=== PATIENT | female | born 1945 | race American Indian/Alaskan Native ===

== ENCOUNTER 2019-01-22 00:50 | Emergency (ER) | payer MEDICARE ==
[2019-01-22 01:00] VITALS: BP 170/67
[2019-01-22] MEDS ORDERED: ULTRAM PO ONE (02:11)
[2019-01-22] MEDS ORDERED: ULTRAM ONE (02:13)
--- NOTE | 2019-01-22 04:08 | XRay Report ---
FINAL REPORT EXAM: XR SPINE CERVICAL 2-3V HISTORY: fall neck pain COMPARISONS: None FINDINGS: Four views of the cervical spine Cervical lordosis is within normal limits. Diffuse mild intervertebral disc space narrowing is most s ignificant at C3-C4 and C5-C6 with associated end-plate spondylosis and remottling. Vertebral body he ights are otherwise preserved. No fractures. Prevertebral soft tissues are within normal limits. Inco mplete evaluation of the lung apices is unremarkable. IMPRESSION: No acute cervical spine findings. Consider CT for more sensitive evaluation as warranted.
--- NOTE | 2019-01-22 04:09 | XRay Report ---
FINAL REPORT EXAM: XR FOREARM LT HISTORY: fall left arm pain COMPARISONS: None. FINDINGS: AP and lateral views left forearm No bone lesion, periosteal reaction, or fracture. No deformity or gross malalignment. IMPRESSION: Intact left forearm.
--- NOTE | 2019-01-22 04:12 | XRay Report ---
FINAL REPORT EXAM: XR RIBS UNI W PA CHEST 3+V RT HISTORY: fall right flank pain TECHNIQUE: PA chest radiograph and AP and oblique views of the right rib cage PRIORS: None. FINDINGS: No mediastinal shift. Cardiac silhouette is not enlarged. No pneumothorax, effusion, or focal pulmon flavia opacity. No displaced rib fracture. IMPRESSION: No acute pulmonary finding or displaced rib fracture.
--- NOTE | 2019-01-22 04:39 | Emergency Department Report ---
ED Fall HPI - General Chief Complaint: Fall Stated Complaint: FALL AT WORK Time Seen by Provider: 01/22/19 03:19 Source: patient Mode of arrival: Wheelchair - History of Present Illness Initial Comments: Patient is a 73-year-old black female with hx of lupus, and htn who presents status post ground-level fall today at work there was no LOC patient was immediately ambulatory after incident states she did not require ambulance transport, the patient now complains of right posterior lateral neck pain right flank rib pain and left forearm pain, pain is described as aching 4/10 pain is exacerbated by movement pt remains ambualtory gait is steady there is no deformity no laceration abrasion or bleeding pain is relieved by rest and off loading MD Complaint: fall Onset/Timin -: hour(s) Fall From: standing When Fall Occurred: other (8 hrs) Fall Witnessed: yes, by bystander Place Fall Occurred: work Loss of Consciousness: none Prolonged Down Time?: no Symptoms Prior to Fall: none Location: neck (right posterior lateral neck ), back (right flank rib pain) Location - Extremities: Left: Forearm Severity: moderate Severity scale (0 -10): 4 Quality: aching Context: tripped/slipped Associated Symptoms: neck pain - Related Data Home Medications Medication Instructions Recorded Confirmed Last Taken Baclofen [Lioresal] 10 mg PO TID 03/08/18 03/08/18 Unknown Calcium Citrate/Vitamin D3 1 each PO QDAY 03/08/18 03/08/18 Unknown [Calcium Citrate - Vit D Tablet] Carboxymethylcellulose Sodium 1 - 2 drops OU PRN PRN 03/08/18 03/08/18 Unknown [Refresh Tears] Estradiol [Estrace] 1 gm VG QPM 03/08/18 03/08/18 Unknown Gabapentin [Neurontin] 300 mg PO TID 03/08/18 03/08/18 Unknown Hydroxychloroquine [Plaquenil] 200 mg PO QDAY 03/08/18 03/08/18 Unknown Lisinopril [Prinivil] 7.5 mg PO QDAY 03/08/18 03/08/18 Unknown raNITIdine HCl [Zantac 300 MG TAB] 300 mg PO HS 03/08/18 03/08/18 Unknown traMADol [Ultram 50 MG tab] 50 mg PO Q6HR PRN 03/08/18 03/08/18 Unknown Previous Rx's Medication Instructions Recorded Last Taken Type Menthol/Camphor [[place] 1 applicatio TP QID PRN #1 tube 01/22/19 Unknown Rx Ointment] Tramadol HCl [Ultram] 50 mg PO TID PRN #9 tablet 01/22/19 Unknown Rx Allergies Allergy/AdvReac Type Severity Reaction Status Date / Time acetaminophen [From Percocet] Allergy Itching Verified 01/22/19 01:01 oxycodone [From Percocet] Allergy Itching Verified 01/22/19 01:01 rye bread Allergy Vomiting Uncoded 01/22/19 01:02 ED Review of Systems ROS: Stated complaint: FALL AT WORK Other details as noted in HPI Constitutional: denies: chills, fever Eyes: denies: eye pain, eye discharge, vision change ENT: denies: ear pain, throat pain Respiratory: denies: cough, shortness of breath, wheezing Cardiovascular: denies: chest pain, palpitations Endocrine: no symptoms reported Gastrointestinal: denies: abdominal pain, nausea, vomiting, diarrhea Genitourinary: denies: urgency, dysuria, discharge Musculoskeletal: back pain, arthralgia. denies: joint swelling, myalgia Skin: denies: rash, lesions Neurological: denies: headache, weakness, paresthesias Psychiatric: denies: anxiety, depression Hematological/Lymphatic: denies: easy bleeding, easy bruising ED Past Medical Hx - Past Medical History Hx Hypertension: Yes Additional medical history: Lupus, Cataract, Fibromylgia - Surgical History Additional Surgical History: Shoulder and knee replacement, c sect - Social History Smoking Status: Never Smoker - Medications Home Medications: Home Medications Medication Instructions Recorded Confirmed Last Taken Type Baclofen [Lioresal] 10 mg PO TID 03/08/18 03/08/18 Unknown History Calcium Citrate/Vitamin D3 1 each PO QDAY 03/08/18 03/08/18 Unknown History [Calcium Citrate - Vit D Tablet] Carboxymethylcellulose Sodium 1 - 2 drops OU PRN PRN 03/08/18 03/08/18 Unknown History [Refresh Tears] Estradiol [Estrace] 1 gm VG QPM 03/08/18 03/08/18 Unknown History Gabapentin [Neurontin] 300 mg PO TID 03/08/18 03/08/18 Unknown History Hydroxychloroquine [Plaquenil] 200 mg PO QDAY 03/08/18 03/08/18 Unknown History Lisinopril [Prinivil] 7.5 mg PO QDAY 03/08/18 03/08/18 Unknown History raNITIdine HCl [Zantac 300 MG TAB] 300 mg PO HS 03/08/18 03/08/18 Unknown History traMADol [Ultram 50 MG tab] 50 mg PO Q6HR PRN 03/08/18 03/08/18 Unknown History Menthol/Camphor [[place] 1 applicatio TP QID PRN #1 tube 01/22/19 Unknown Rx Ointment] Tramadol HCl [Ultram] 50 mg PO TID PRN #9 tablet 01/22/19 Unknown Rx ED Physical Exam - General Limitations: No Limitations General appearance: alert, in no apparent distress - Head Head exam: Present: atraumatic, normocephalic, normal inspection - Expanded Head Exam Expanded Head exam: Absent: laceration, abrasion, contusion, hematoma, racoon eyes, pillai's sign, general tenderness, tenderness of temporal artery, CSF rhinorrhea, CSF otorrhea - Eye Eye exam: Present: normal appearance, PERRL, EOMI Pupils: Present: normal accommodation - ENT ENT exam: Present: normal orophraynx, mucous membranes moist, TM's normal bilaterally, normal external ear exam - Neck Neck exam: Present: normal inspection, tenderness (right posterior lateral neck muscle pain no ecchymosis no swelling on deformity rom intact unrestricted), full ROM. Absent: meningismus, lymphadenopathy, thyromegaly - Expanded Neck Exam Expanded Neck exam: Present: tenderness (no posterior vertebral point tenderness ). Absent: midline deformity, anterior neck swelling, thyroid mass, carotid bruit, tracheal deviation - Respiratory Respiratory exam: Present: normal lung sounds bilaterally. Absent: respiratory distress, wheezes, stridor, chest wall tenderness - Cardiovascular Cardiovascular Exam: Present: regular rate, normal rhythm, normal heart sounds. Absent: systolic murmur, diastolic murmur, rubs, gallop - GI/Abdominal GI/Abdominal exam: Present: soft, normal bowel sounds. Absent: distended, tenderness, guarding, rebound, rigid, bruit, hernia - Rectal Rectal exam: Present: deferred - External exam: Present: other (exam deferred ) - Extremities Exam Extremities exam: Present: normal inspection, full ROM, tenderness (left forearm ), pedal edema. Absent: normal capillary refill, calf tenderness - Expanded Upper Extremity Exam Left Forearm Wrist exam: Present: full ROM, tenderness (small left anteriro forearm contusion no deformity no crepitus no stepoff ), abrasion, erythema. Absent: swelling, laceration, ecchymosis, deformity, crepidus, dislocation, tenderness over anatomical snuff box, pain with axial thumb loading Hand Wrist exam: Present: normal inspection, full ROM Neuro motor exam: Present: wrist extension intact, thumb opposition intact, thumb IP flexion intact, thumb adduction intact, fingers 2-5 abduction intact Neurosensory exam: Present: 2-point discrimination, radial nerve intact, ulnar nerve intact, median nerve intact Vascular: Present: normal capillary refill, radial pulse, brachial pulse, ulnar pulse. Absent: pulse deficit radial art, pulse deficit ulnar art, pulse deficit brachial art - Back Exam Back exam: Present: normal inspection, full ROM, tenderness (right lateral lumbar back muscle pain ), muscle spasm. Absent: CVA tenderness (R), CVA tenderness (L), paraspinal tenderness, vertebral tenderness, rash noted - Neurological Exam Neurological exam: Present: alert, oriented X3, CN II-XII intact, normal gait, reflexes normal. Absent: motor sensory deficit - Expanded Neurological Exam Expanded Neurological exam: Absent: ataxia Patient oriented to: Present: person, place, time Speech: Present: fluid speech Cranial nerves: EOM's Intact: Normal, Gag Reflex: Normal, Tongue Deviation: Normal, Nystagmus: Normal, Facial Sensation: Normal Cerebellar function: Finger to Nose: Normal, Heel to Hughes: Normal, Romberg: Normal Upper motor neuron: [place] Neglect: Normal, Pronator Drift: Normal, Babinski Sign: Normal, Sensory Extinction: Normal Sensory exam: Upper Extremity Light Touch: Normal, Upper Extremity Pin Prick: Normal, Upper Extremity Temperature: Normal, UE 2 Point Discrimination: Normal, Lower Extremity Light Touch: Normal, Lower Extremity Pin Prick: Normal, Lower Extremity Temperature: Normal, LE 2 Point Discrimination: Normal Motor strength exam: RUE: 5, LUE: 5, RLE: 5, LLE: 5 DTR: bicep (R): 2+, bicep (L): 2+, ankle (R): 2+, ankle (L): 2+ Best Eye Response (Joe): (4) open spontaneously Best Motor Response (Joe): (6) obeys commands Best Verbal Response ([place]): (5) oriented Joe Total: 15 - Psychiatric Psychiatric exam: Present: normal affect, normal mood - Skin Skin exam: Present: warm, dry, intact, normal color. Absent: rash ED Course Vital Signs 01/22/19 01/22/19 00:59 03:29 Temperature 97.7 F Pulse Rate 61 Respiratory 18 18 Rate Blood Pressure 170/67 [Left] O2 Sat by Pulse 100 Oximetry ED Medical Decision Making - Radiology Data Radiology results: report reviewed, image reviewed FINAL REPORT EXAM: XR RIBS UNI W PA CHEST 3+V RT HISTORY: fall right flank pain TECHNIQUE: PA chest radiograph and AP and oblique views of the right rib cage PRIORS: None. FINDINGS: No mediastinal shift. Cardiac silhouette is not enlarged. No pneumothorax, effusion, or focal pulmonary opacity. No displaced rib fracture. IMPRESSION: No acute pulmonary finding or displaced rib fracture. Transcribed By: MB Dictated By: MICHAEL PATTEN MD Electronically Authenticated By: MICHAEL PATTEN MD Signed Date/Time: 01/22/19411 DD/ 0 TD/TT: 01/22/19410F Forearm Xray: Normal xray no fracture no soft tissure abnormlity CSpine xray : Degenerative changes - Medical Decision Making Patient is a 73-year-old black female with hx of lupus, and htn who presents status post ground-level fall today at work there was no LOC patient was immediately ambulatory after incident states she did not require ambulance transport, the patient now complains of right posterior lateral neck pain right flank rib pain and left forearm pain, pain is described as aching 4/10 pain is exacerbated by movement pt remains ambualtory gait is steady there is no deformity no laceration abrasion or bleeding pain is relieved by rest and off loading Critical care attestation.: If time is entered above; I have spent that time in minutes in the direct care of this critically ill patient, excluding procedure time. ED Disposition Clinical Impression: Flank pain Fall Qualifiers: Encounter type: initial encounter Qualified Code(s): W19.XXXA - Unspecified fall, initial encounter Neck muscle strain Qualifiers: Encounter type: initial encounter Qualified Code(s): S16.1XXA - Strain of muscle, fascia and tendon at neck level, initial encounter Disposition: TO HOME OR SELFCARE Is pt being admited?: No Does the pt Need Aspirin: No Condition: Stable Instructions: Cervical Spine Strain (ED), Contusion in Adults (ED), Flank Pain (ED) Prescriptions: Menthol/Camphor [[place] Ointment] 1 applicatio TP QID PRN #1 tube PRN Reason: Pain , Severe (7-10) Tramadol HCl [Ultram] 50 mg PO TID PRN #9 tablet PRN Reason: pain Referrals: DANNY BARRY MD [Primary Care Provider] - 3-5 Days Forms: Work/School Release Form(ED) Time of Disposition: 05:10
== END 2019-01-22 06:52 | disposition home or self-care (01) ==
LOC: ED 00:50
DX: S16.1XXA Strain of muscle, fascia and tendon at neck level, initial encounter (principal); R07.81 Pleurodynia; M79.632 Pain in left forearm; Z88.6 Allergy status to analgesic agent; Z88.4 Allergy status to anesthetic agent; Z91.09 Other allergy status, other than to drugs and biological substances; W19.XXXA Unspecified fall, initial encounter; Y93.89 Activity, other specified; Y99.0 Civilian activity done for income or pay; Y92.69 Other specified industrial and construction area as the place of occurrence of the external cause
CPT/HCPCS: 72040; 99283